=== PATIENT | female | born 1990 | race Caucasian/White ===

== ENCOUNTER 2020-12-08 11:31 | Emergency (ER) | payer OTHER, SELFPAY ==
[2020-12-08] VITALS (11 sets, daily range): BP systolic 101–130; BP diastolic 66–97; PULSE 78–104; RESP 7–20; TEMP 36.6; O2SAT 98–100
--- NOTE | 2020-12-08 11:51 | ED.GENADUL_ITS ---
Discharge Plan Disposition Patient Disposition: HOME Condition: Stable Discharge Details Clinical Impression: Fall from horse, Abrasion, Laceration, Contusion of lung Primary Care Provider: Jonathan Henriquez ED Provider: Leeann Tanner Home Meds and New Rx's Prescriptions: No Action No Known Home Meds RF: 0 Discharge Instructions Instructions: Laceration (ED), Contusion in Adults (ED) Additional Instructions: Labs are significant for a small lung contusion. Please encourage deep breathing. Encourage water intake. Tylenol and/or ibuprofen as needed for discomfort. Please encourage gentle stretching. You will likely be quite tight have some muscle spasms. Please keep your wound clean, dry, covered. Keep moist with bacitracin or Neosporin. Monitor for signs of infection including redness, warmth, drainage, increased pain, fever/chills. A referral has been se nt for local primary care. If you develop any new or worsening symptoms please seek care urgently once again. Please return and 10 days for suture removal. Discharge Data Discharge Date/Time-TO BE ENTERED AT DEPARTURE: 12/08/20 14:38 Medical Decision Making Patient is a pleasant 30-year-old female accompanied by significant other with chief complaint of trauma after fall off horse. She states she was getting on the horse when the horse bucked and she fell landing on her right side. Denies striking her head. Was not helmeted. No LOC. Witnessed by her . She suffered abrasion and laceration to right elbow. Also has pain in right side of pelvis. She denies CP but states that she does feel SOB but feels that htis is because she has signficant discomfort. Unknown tetanus status, believes it is out of date. On exam, patient appears uncomfortable. No trauma ot head or neck. No midline back pain. She has no pelvic instability but does have pain over hte lateral aspect of the pelvis and pain with testing. Full ROM of the right hip. 2+ distal pulses. She has full ROM of right elbow. Road rash and laceration. Deeper aspect will need closure. Lungs clear, abdomen benign. Will treat patient's pain. I am concerned about hte patients pelvic pain and SOB. I am cncerned she has distracting injuries and feel that imaging is approriate. Will update tetanus. UPT negative, patient menstruating. Labs reviewed. Signficant for leukocytosis and WBC of 13. This is likely stress reaction. CT reviewed by radiologist: FINDINGS: Lungs: Small area of ground-glass parenchymal disease is seen in the anterior segment of right lower lobe the best seen on series 5 image 338. Remainder of the lungs are clear. No mass lesion seen. Pleural spaces: Unremarkable. No pneumothorax. No pleural effusion. Heart: Unremarkable. No cardiomegaly. No pericardial effusion. Aorta: Unremarkable. No aortic aneurysm. Lymph nodes: Unremarkable. No enlarged lymph nodes. Bones/joints: No evidence of rib fracture. No evidence of clavicular fracture. No evidence of scapular fracture. No evidence of acute pathology seen in the spine. No evidence of sternal fracture. Soft tissues: Unremarkable. IMPRESSION: Small area of ground-glass parenchymal disease is seen in the anterior segment of right lower lobe the best seen on series 5 image 338. This finding is too small and subtle for definitive characterization. Mild lung contusions should be considered in setting of trauma. Early/mild infectious pathology is less likely but can also have this imaging finding. No evidence of fracture. FINDINGS: Liver: Normal. No mass. Gallbladder and bile ducts: Normal. No calcified stones. No ductal dilation. Pancreas: Normal. No ductal dilation. Spleen: Normal. No splenomegaly. Adrenal glands: Normal. No mass. Kidneys and ureters: 12 mm simple cyst in right kidney.This lesion appears benign. No followup is necessary. Stomach and bowel: Mild diffuse wall thickening is seen in descending and sigmoid colon. Appendix: No evidence of appendicitis. Intraperitoneal space: No free fluid or fluid collections. No inflammatory changes. No free air. Vasculature: Unremarkable. No abdominal aortic aneurysm. Lymph nodes: Unremarkable. No enlarged lymph nodes. Urinary bladder: Unremarkable as visualized. Reproductive: Tampon and pelvic ring seen within the vaginal cavity. Bones/joints: No evidence of fracture seen in superior or inferior pubic rami. No evidence of fracture in femoral head or neck. Femoral head is situated within the acetabulum. No evidence of sacral fracture. No evidence of acute pathology seen in the spine. Soft tissues: Unremarkable. Other findings: Wall thickening is seen at gastroesophageal junction and gastric antrum. IMPRESSION: 1. No evidence of visceral organ or vascular injury. 2. Mild diffuse wall thickening is seen in descending and sigmoid colon. Please correlate clinically for incidental coliti. 3. Wall thickening is seen at gastroesophageal junction and gastric antrum. Please correlate clinically for gastritis and distal esophagitis. Discussed these findinsg with the patient. Will have her encourage deep breathing, she is in no respiratory distress. Denies any GI symptoms. Wounds were cleansed. She and I discussed risks/benefits as well as expected procedural steps of suture closure of the deeper wound. She voices udnerstanding and wishes to proceed. Please see procedure note. Patient tolerated this well. Wound was copiously irrigated and explored to base in bloodless field. She has small amount of dirt that was removed. No remaining debris or FB. Wound was dressed. We discussed wound care, care of her contusions. Will refer to PCP as she does not have one. ADvised tylenol and/or ibuprofen as needed for discomfort. Return precautions discussed. She will return in 10 days for suture removal. All of her quesitons and concerns were addressed, she is in agreement with this plan. HPI General Mode of arrival: ambulatory . Date/Time Provider Initiated Documentation: 12/08/20 11:51 . Limitations to Documentation: no limitations . Information obtained by: patient and family () . History of Present Illness 30 year old F presents to the emergency department with the chief complaint of right elbow laceration, right pelvic pain after fall off horse, described as moderate, with intensity rated at 4. Quality is described as aching, and is localized to the pelvis, right, upper extremity and lower extremity. Patient reports no radiation. Patient started experiencing this minute(s) and it has been constant. Immobilization improves symptom(s), Movement worsens symptoms . Patient notes shortness of breath (reports feeling SOB with severe pain in hip and elbow); denies chest pain, cough, fever/chills, headaches and nausea/vomiting. Patient did receive the following treatments prior to arrival, none Related Data Home Medications Medication Instructions Recorded Confirmed Unknown [No Known Home Meds] 12/08/20 12/08/20 Allergies Allergy/AdvReac Type Severity Reaction Status Date / Time No Known Allergies Allergy Unverified 12/08/20 11:45 General Stated Complaint: Trauma CYNTHIA: 3 Review of Systems Constitutional Constitutional: Reports as per HPI, Denies chills, Denies fatigue, Denies fever(s), Denies headache(s) and Denies weakness Eyes Eyes: Reports as per HPI, Denies blurry vision, Denies change in vision and Denies loss of vision ENT Ears, Nose, Mouth, and Throat: Denies abnormal hearing and Denies headache(s) Cardiovascular Cardiovascular: Reports as per HPI, Denies chest pain and Reports dyspnea (attributes to her pain) Respiratory Respiratory: Reports as per HPI, Denies cough, Denies pain on inspiration, Denies pain with cough and Reports dyspnea (attributes to her pain) Gastrointestinal Gastrointestinal: Reports as per HPI, Denies abdominal pain, Denies nausea and Denies vomiting Genitourinary Genitourinary: Reports as per HPI and Denies urinary incontinence Musculoskeletal Musculoskeletal: Reports as per HPI Integumentary/Breasts Skin/Breast: Reports as per HPI and Reports wounds Neurologic Neurologic: Reports as per HPI, Denies abnormal hearing, Denies abnormal movements, Denies abnormal speech, Denies headache(s), Denies lack of coordi nation, Denies localized weakness, Denies loss of vision, Denies seizure-like activity, Denies paresthesias and Denies weakness Endocrine Endocrine: Denies fatigue [facility] Social History Smoking risk assessment performed?: No Exam Const General: cooperative, healthy appearing, uncomfortable, no acute distress, well developed and well groomed Nutritional Appearance: average body habitus and well nourished Orientation: alert, awake and oriented x3 HENMT Head: normal to inspection, no palpable skull fracture, normocephalic and atraumatic Ears: hearing grossly normal bilaterally, external ears normal and TM's normal bilaterally General nose exam: external nose normal Mouth: oral mucosae normal, lip normal and tongue normal Throat: posterior oropharynx normal Eyes General: appearance normal, both eyes and all related structures Visual Solitario: normal visual solitario by confrontation Alignment and Position: alignment normal Periorbital: periorbital findings normal Eyelids: eyelids normal Conjunctivae: conjunctivae normal Pupils: PERRL EOM: EOM intact bilaterally Neck Neck: normal visual inspection, full ROM, no lymphadenopathy, no meningeal signs, trachea midline and supple Chest Chest: normal inspection of the chest, normal palpation of entire chest wall, no crepitus and no localized rib tenderness Resp Effort & Inspection: normal respiratory effort, able to speak in complete sentences and no respiratory distress Auscultation: clear to auscultation bilaterally, no rales, no rhonchi and no wheezes Cardio Rate: regular rate Rhythm: regular rhythm Heart Sounds: S1 normal and S2 normal GI Inspection: normal to inspection, no abdominal wall ecchymosis, no edema and non-distended Palpation: soft, no hepatosplenomegaly, not firm, no guarding, no pulsatile masses, not rigid and nontender Auscultation: normal bowel sounds Back/Spine/Pelvis Back: no CVA tenderness Cervical Spine: normal cervical lordosis and cervical ROM normal Thoracic/Lumbar Spine: thoracic and lumbar spine normal to inspection, thoraco- lumbar ROM normal, No thoraco-lumbar ROM limited, No thoraco-lumbar spasm and No thoracic spinal tenderness Pelvis: pain with anterior-posterior compression, pain with lateral compression (pain over lateral iliac crest), no buttock tenderness and no buttock swelling Sacroiliac joints: on the right tender to palpation Sacrum: no tenderness Coccyx: no tenderness Skin Trauma: abrasion (BUE) and laceration (posterior right elbow) Neuro General: patient alert, patient awake, patient oriented x3, gait normal, tone normal and moves all extremities Cranial Nerves: CN's II-XI intact bilaterally Cognition: normal cognition Speech: speech normal Gait: normal gait Motor: muscle tone normal throughout and strength 5/5 throughout Sensory Exam: no sensory deficits noted (no saddle paresthesias) Extrem General: normal to inspection, full ROM, capillary refill normal, no pedal edema and no calf tenderness Shoulder/upper arm images: 1. ecchymosis and small abrasions, no deep wounds Elbow/forearm/wrist images: 1. Abrasion in this area. There is a 2cm laceration centrally over htis. No deep structures involved. Full ROM of right elbow with no pain or limitation. Right lower extremity: normal to inspection, full ROM, normal capillary refill, no joint enlargement, hip/thigh Details: tenderness Location: of the hip Location: laterally and normal ROM; no swelling, no abrasions, no lacerations, no ecchymosis, no crepitus and no deformity and knee Details: normal to inspection and normal ROM; no tenderness; no edema Psych Appearance: grossly normal and well kempt Mental Status: mental status grossly normal Speech and Movement: speech and movement normal Course Vital Signs Vital signs: Vital Signs Temperature 36.6 C 12/08/20 11:41 Pulse 79 12/08/20 11:41 Respiratory Rate 20 12/08/20 11:41 Blood Pressure 101/66 12/08/20 11:41 Pulse Oximetry 98 12/08/20 11:41 Temperature 36.6 C 12/08/20 11:41 Temperature Source Skin 12/08/20 11:41 Pulse 79 12/08/20 11:41 Respiratory Rate 20 12/08/20 11:41 Blood Pressure 101/66 12/08/20 11:41 Blood Pressure Position Sitting 12/08/20 11:41 Pulse Oximetry 98 12/08/20 11:41 Oxygen Delivery Method Room Air 12/08/20 11:41 Oxygen Flow Rate 0 12/08/20 11:41 Pain Level 4 12/08/20 11:41 Procedures Laceration Laceration 1: Site: upper extremity Side (If applicable): right Size (cm): 2 Description: linear Depth: simple, single layer Local Anesthetic: Lidocaine 1% Amount of anesthesia used (mL): 4 Pre-repair: wound explored, irrigated extensively and deep structures intact Skin layer closed with: nylon Size (cm): 5-0 Number of sutures: 2 Technique: simple, interrupted
--- NOTE | 2020-12-08 12:00 | DI.CT_ITS ---
Exam(s) CT CHEST/ABD/PEL W EXAM: CT CHEST/ABD/PEL W CLINICAL HISTORY: fell off horse, pelvic pain TECHNIQUE: Imaging Protocol: Axial computed tomography images with coronal and sagittal reformatted images were created and reviewed CONTRAST MATERIAL: Intravenous: Omnipaque 350 Contrast volume:100 mL Oral: No COMPARISON: No exams were available for comparison FINDINGS: CHEST: Tracheobronchial tree: Patent where visualized. Pulmonary parenchyma: There is a small ground-glass infiltrate in the anteromedial aspect of the righ t lower lobe. No architectural distortion. Visualized thyroid gland: Unremarkable. Mediastinum and Diane: No dominant adenopathy or fluid collection. There is soft tissue in the anterio r mediastinum likely reflecting residual thymic tissue. Pleura: No effusion or pneumothorax. Heart: The heart is not dilated. No coronary artery calcifications are seen. No pericardial effusion. Aorta: Thoracic aorta non-dilated. Lymph nodes: Within normal limits. Soft tissues: Unremarkable. Bones:No acute fracture. ABDOMEN: Liver: Normal density. No measurable mass. Nonspecific small hypodensity in the posterior segment of the right lobe of the liver. It is too small for further characterization. Portal, Superior Mesenteric, and Splenic Veins: Unremarkable. Gallbladder and Biliary Tract: No radiodense calculus or dilation. Pancreas: Normal density, no abnormal calcifications or inflammatory process. Spleen: Normal. Adrenals: No masses seen. Kidneys: Normal size, contour and axis. No radiodense stones or obstructive uropathy. 9 mm simple cys t in the right kidney. No further follow-up is recommended. Abdominal Aorta: Abdominal portion non-dilated. Bowel: No obstruction or bowel wall thickening. No evidence of appendicitis. The stomach, descending colon and sigmoid colon are not well distended limiting evaluation. If there are symptoms referable to these organs a follow-up is recommended. Peritoneal Cavity: No ascites, collection or mesenteric inflammatory response. No free air. Lymph Nodes: Within normal limits. Bones: Unremarkable. Soft Tissues: Unremarkable. PELVIS: Bladder: Symmetric distention, no gross wall thickening. Reproductive Organs: Unremarkable as visualized. A pessary is noted. Lymph Nodes: Within normal limits. Bones: Within normal limits. IMPRESSION: 1. No evidence of acute abdominal or pelvic organ injury or fracture. 2. Small focus of ground-glass opacity in the anterior medial aspect of the right lower lobe. This i s nonspecific but a small contusion may have this appearance. 3. No acute fracture in the chest RADIATION DOSE DELIVERED: 1,230.39mGy.cm Total DLP DATA REPOSITORY: All CT scans at this facility are submitted to the National Radiology Data Registry (NRDR) Dose Index Registry (DIR) with the [employer] ([employer]). RADIATION OPTIMIZATION: All CT scans at this facility use at least one of these dose optimization te chniques: automated exposure control; mA and/or kV adjustment per patient size (includes targeted exa ms where dose is matched to clinical indication); or iterative reconstruction.
[2020-12-08] MEDS: Normal Saline 1,000 ML 1000 ML IV (12:15)
[2020-12-08] MEDS: Ondansetron 4 MG/2 ML VIAL IVP (12:20)
[2020-12-08 12:40] LABS: Abs Immature Grans 0.06 10^3/uL (0.0-0.06); Absolute Basophil Count 0.08 10^3/uL (0.0-0.2); Absolute Eosinophil Count 0.22 10^3/uL (0.0-0.7); Absolute Lymphocyte Count 3.05 10^3/uL (1.2-3.4); Absolute Neutrophil Count 9.09 10^3/uL (1.2-6.7); Basophils % 0.6; Eosinophils % 1.7; HCT 40.3 % (36.0-46.0); HGB 13.3 g/dL (11.2-15.7); Immature Grans % 0.5; Lymphocytes % 23.2; MCV 90.8 fL (80-95); MPV 9.8 fL (8.0-11.0); Monocytes % 4.9; Neutrophils % 69.1; Nucleated RBC 0 %; Platelet Count 391 10^3/uL (130-400); RBC 4.44 10^6/uL (3.93-5.22); RDW 11.7 % (11.7-14.6); RDW-SD 38.7 fL; WBC 13.15 10^3/uL (4.4-10.8)
[2020-12-08 12:43] LABS: Absolute Monocyte Count 0.64 10^3/uL (0.1-0.8)
[2020-12-08] MEDS: MORPHine 10 MG/ML VIAL 4 MG IVP (12:45)
[2020-12-08 12:53] LABS: ALT 42 U/L (14-59); AST 43 U/L (15-37); Albumin 3.5 g/dL (3.4-5.0); Alkaline Phosphatase 66 U/L (46-116); Anion Gap 11.4 mmol/L (3-11); BUN 11 mg/dL (7-18); Bilirubin, Total 0.5 mg/dL (0.2-1.0); CO2 26.6 mmol/L (21.0-32.0); CREATININE 1.1 mg/dL (0.55-1.02); Calcium 8.7 mg/dL (8.5-10.1); Chloride 104 mmol/L (98-107); Estimated GFR 58.72 (mL/min/1.73m2); Glucose 111 mg/dL (74-106); Potassium 3.6 mmol/L (3.5-5.1); Sodium 142 mmol/L (136-145); Total Protein 7.6 g/dL (6.4-8.2)
[2020-12-08] MEDS: Lidocaine/Epinephri/Tetracaine Topical Gel 3 ML TP (13:00)
[2020-12-08] MEDS: Omnipaque 350 MG/ML 100 ML BTL IV (13:09)
[2020-12-08] MEDS: Normal Saline - Diluent 50 ML VIAL IV (13:11)
--- NOTE | 2020-12-08 13:52 | DI.VRAD_ITS ---
PROCEDURE INFORMATION: Exam: CT Chest With Contrast; Diagnostic Exam date and time: 12/08/2020 12:03 PM Age: 30 years old Clinical indication: Other: Fell off horse, pelvic pain TECHNIQUE: Imaging protocol: Diagnostic computed tomography of the chest with contrast. 3D rendering (Not supervised by radiologist): MIP and/or 3D reconstructed images were created by the technologist. Contrast material: OMNIPAQUE 350; Contrast volume: 100 ml; Contrast route: INTRAVENOUS (IV); COMPARISON: No relevant prior studies available. FINDINGS: Lungs: Small area of ground-glass parenchymal disease is seen in the anterior segment of right lower lobe the best seen on series 5 image 338. Remainder of the lungs are clear. No mass lesion seen. Pleural spaces: Unremarkable. No pneumothorax. No pleural effusion. Heart: Unremarkable. No cardiomegaly. No pericardial effusion. Aorta: Unremarkable. No aortic aneurysm. Lymph nodes: Unremarkable. No enlarged lymph nodes. Bones/joints: No evidence of rib fracture. No evidence of clavicular fracture. No evidence of scapular fracture. No evidence of acute pathology seen in the spine. No evidence of sternal fracture. Soft tissues: Unremarkable. IMPRESSION: Small area of ground-glass parenchymal disease is seen in the anterior segment of right lower lobe the best seen on series 5 image 338. This finding is too small and subtle for definitive characterization. Mild lung contusions should be considered in setting of trauma. Early/mild infectious pathology is less likely but can also have this imaging finding. No evidence of fracture. PROCEDURE INFORMATION: Exam: CT Abdomen And Pelvis With Contrast Exam date and time: 12/08/2020 12:03 PM Age: 30 years old Clinical indication: Other: Fell off horse, pelvic pain TECHNIQUE: Imaging protocol: Computed tomography of the abdomen and pelvis with contrast. 3D rendering (Not supervised by radiologist): MIP and/or 3D reconstructed images were created by the technologist. Radiation optimization: All CT scans at this facility use at least one of these dose optimization techniques: automated exposure control; mA and/or kV adjustment per patient size (includes targeted exams where dose is matched to clinical indication); or iterative reconstruction. Contrast material: OMNIPAQUE 350; Contrast volume: 100 ml; Contrast route: INTRAVENOUS (IV); COMPARISON: No relevant prior studies available. FINDINGS: Liver: Normal. No mass. Gallbladder and bile ducts: Normal. No calcified stones. No ductal dilation. Pancreas: Normal. No ductal dilation. Spleen: Normal. No splenomegaly. Adrenal glands: Normal. No mass. Kidneys and ureters: 12 mm simple cyst in right kidney.This lesion appears benign. No followup is necessary. Stomach and bowel: Mild diffuse wall thickening is seen in descending and sigmoid colon. Appendix: No evidence of appendicitis. Intraperitoneal space: No free fluid or fluid collections. No inflammatory changes. No free air. Vasculature: Unremarkable. No abdominal aortic aneurysm. Lymph nodes: Unremarkable. No enlarged lymph nodes. Urinary bladder: Unremarkable as visualized. Reproductive: Tampon and pelvic ring seen within the vaginal cavity. Bones/joints: No evidence of fracture seen in superior or inferior pubic rami. No evidence of fracture in femoral head or neck. Femoral head is situated within the acetabulum. No evidence of sacral fracture. No evidence of acute pathology seen in the spine. Soft tissues: Unremarkable. Other findings: Wall thickening is seen at gastroesophageal junction and gastric antrum. IMPRESSION: 1. No evidence of visceral organ or vascular injury. 2. Mild diffuse wall thickening is seen in descending and sigmoid colon. Please correlate clinically for incidental coliti. 3. Wall thickening is seen at gastroesophageal junction and gastric antrum. Please correlate clinically for gastritis and distal esophagitis. Dictated and Authenticated by: Jean Harrington MD. Ordering:ERIC Bradshaw MD
--- NOTE | 2020-12-08 14:20 | NUR.NOTE ---
Nursing Note: Referral given to Care Management to establish care w/PCP with routine follow up. Mirian Alamo
== END 2020-12-08 14:38 | disposition home or self-care (01) ==
PROVIDERS: Emergency Provider Physician Assistant; PCP Pediatrics
DX: S51.821A Laceration with foreign body of right forearm, initial encounter (principal); S80.11XA Contusion of right lower leg, initial encounter; S27.329A Contusion of lung, unspecified, initial encounter; V80.010A Animal-rider injured by fall from or being thrown from horse in noncollision accident, initial encounter
CPT/HCPCS: 12001; 36415; 74177; 80053; 81025; 96361; 96374; 96375; 99285; 71260; 85025; 99283; J2270; J2405; J3490

== ENCOUNTER 2021-01-29 03:29 | Outpatient (CLI) | payer OTHER, SELFPAY ==
[2021-01-29 11:54] LABS: ALT 27 U/L (14-59); AST 20 U/L (15-37); Albumin 4.2 g/dL (3.4-5.0); Alkaline Phosphatase 60 U/L (46-116); BUN 10 mg/dL (7-18); Bilirubin, Total 0.5 mg/dL (0.2-1.0); Calcium 9.1 mg/dL (8.5-10.1); Calculated LDL 74 mg/dL (<100); Chloride 103 mmol/L (98-107); Cholesterol 159 mg/dL (<200); Glucose 85 mg/dL (74-106); HDL Cholesterol 67 mg/dL (40-60); Potassium 4.2 mmol/L (3.5-5.1); Sodium 140 mmol/L (136-145); TSH (W/Ref FT4) 2.26 uIU/mL (0.36-3.74); Total Protein 7.9 g/dL (6.4-8.2); Triglyceride 94 mg/dL (<150); Vitamin B12 356 pg/mL (193-986)
== END 2021-01-29 03:30 | disposition home or self-care (01) ==
LOC: LBO 03:29
PROVIDERS: PCP Nurse Practitioner Adult Health; Visit Provider Nurse Practitioner Adult Health
DX: F41.9 Anxiety disorder, unspecified (principal); F43.9 Reaction to severe stress, unspecified; Z13.220 Encounter for screening for lipoid disorders
CPT/HCPCS: 36415; 80053; 80061; 82607; 82746; 84443

== ENCOUNTER 2022-07-27 13:22 | Outpatient (CLI) | payer OTHER, SELFPAY ==
--- NOTE | 2022-07-27 13:15 | RT.EKG_ITS ---
APPROVED REPORT Exam: Resting ECG Reason for Exam: assess cardiac rhythm Patient Location: O HR:80 bpm ECG Measurements Heart Rate 80 AXIS DE 150 P 49 QRSd 86 QRS 49 QT 368 T 53 QTc 425 Conclusion Sinus rhythm...normal P axis, V-rate 50- 99 Normal Electrocardiogram
== END 2022-07-27 13:23 | disposition home or self-care (01) ==
LOC: DI.KIM 13:23
PROVIDERS: PCP Nurse Practitioner Adult Health; Visit Provider Nurse Practitioner Adult Health
DX: F43.29 Adjustment disorder with other symptoms (principal); R07.9 Chest pain, unspecified
CPT/HCPCS: 93010